=== PATIENT | female | born 1950 | race African-American/Black ===

== ENCOUNTER → 2018-05-24 06:38 | Outpatient (CLI) | payer OTHER, MEDICARE, SELFPAY ==
--- NOTE | 2018-05-24 | DI.MRI.S_ITS ---
PROCEDURE: MR ANKLE RT WO CON INDICATIONS: ACHILLES TENDONITIS OF RIGHT LEG. RIGHT POSTERIOR ANKLE PAIN TECHNIQUE: Noncontrast sagittal T1 spin echo and T2 fast spin echo with fat saturation, axial proton density fast spin echo and T2 fast spin echo with fat saturation, coronal T1 spin echo and T2 fast spin echo with fat saturation through the ankle/hindfoot. COMPARISON: [facility], CR, XR FOOT 3+ VIEWS RIGHT, 01/11/2018, 9:54. [facility], MR, ANKLE WITHOUT CONTRAST, 07/05/2017, 12:35. [facility], CR, XR FOOT 3+ VIEWS RIGHT, 10/03/2014, 9:43. FINDINGS: Image quality: Diagnostic. Bones and joints: There is no acute fracture, dislocation, or suspicious osseous lesions involving the osseous structures of the midfoot or hindfoot. Ankle mortise is well-maintained. There are no osteochondral defects of the tibial plafond or talar dome. Mild heterogeneity of the hyaline articular cartilage on the intra-margin of the tibiotalar joint space is present. No definite full-thickness cartilaginous defects are evident. There is slight increased signal identified on the periphery of the medial malleolus, which may represent a bone contusion. Mild irregularity is identified involving the anterior process of the calcaneus, likely related to previous injury. There are prominent plantar and Achilles spurs involving the calcaneus. There are [id number] degenerative changes of the midfoot and hindfoot joints, most prominent involving the tarsal navicular joint. No significant joint effusions are appreciated. Medial structures: There is moderate irregularity of the deltoid ligament, which appears to represent moderate to high-grade partial-thickness tear. Thickening and increased signal of the superomedial and the spring ligament is present. The plantar components of the spring ligament are intact. The tibialis posterior tendon demonstrates slight increased signal near the level of the navicular. The flexor hallucis longus and flexor digitorum longus tendons are intact. The posterior tibial nerve is within normal limits. Lateral structures: The anterior and posterior distal tibiofibular ligaments are intact. Anterior talofibular ligament is completely torn the posterior talofibular ligament appears to be intact. The calcaneofibular ligament is intact. There is increased signal identified involving the peroneus brevis and peroneus longus tendons. Medial subluxation of the peroneus brevis tendon is identified at the tip of lateral malleolus. There may be a short segment longitudinal split tear involving this portion of the peroneus brevis tendon. No full-thickness tears are identified. Normal fatty signal is seen within the region of the sinus tarsi. Anterior structures: The tibialis anterior, extensor hallucis longus, and extensor digitorum longus tendons appear intact. Posterior and plantar structures: Achilles tendon is prominently thickened and demonstrates increased signal at its insertion with probable areas of low to moderate grade intrasubstance partial thickness tearing. A complete tear is not evident. Medial and lateral bands of the plantar fascia are of normal thickness. IMPRESSION: 1. Moderate grade intrasubstance partial thickness tearing and prominent tendinopathy of the distal Achilles tendon. There is a prominent Achilles spur. 2. Mild to moderate peroneus brevis and peroneus longus tendinopathy. There may be a short segment intrasubstance longitudinal split tear of the peroneus brevis tendon at the lateral malleolus. 3. Full-thickness anterior talofibular ligament tear. 4. Moderate to high-grade partial-thickness tear of the deltoid ligament. 5. Sprain versus scarring of the spring ligament. No full-thickness tear. 6. Mild to moderate degenerative changes of the midfoot and hindfoot joints. 7. Apparent old injury involving the anterior process of the calcaneus. 8. Moderate sized plantar calcaneal spur without imaging findings of plantar fasciitis. Dictated by: Markos Briggs M.D. on 05/24/2018 at 10:36 Approved by: Markos Briggs M.D. on 05/24/2018 at 11:24
== END ==
PROVIDERS: Family Provider Nutritionist; PCP Nutritionist; Visit Provider Podiatrist
DX: M76.61 Achilles tendinitis, right leg (principal); S86.011A Strain of right Achilles tendon, initial encounter; S93.491A Sprain of other ligament of right ankle, initial encounter; S93.421A Sprain of deltoid ligament of right ankle, initial encounter; M19.071 Primary osteoarthritis, right ankle and foot; M77.31 Calcaneal spur, right foot
CPT/HCPCS: 73721

== ENCOUNTER → 2020-03-04 11:47 | Outpatient (CLI) | payer MEDICARE, OTHER, SELFPAY ==
--- NOTE | 2020-03-04 11:51 | DI.RAD.S_ITS ---
PROCEDURE: XR LUMBAR SPINE MIN 4V INDICATIONS: Lumbar radiculopathy TECHNIQUE: 5 views of the lumbar spine were acquired. COMPARISON: None. FINDINGS: Bones: 5 nonrib-bearing vertebrae are present. There is mild L3-L4 anterolisthesis secondary to facet hypertrophy. No vertebral body compression fractures. No suspicious bony lesions. Severe L4-L5 degenerative changes. Moderate L5-S1 degenerative disc changes. Mild L1-L2, L2-L3 and L3-L4 degenerative changes. Moderate L2-L3, L3-L4, L4-L5 and L5-S1 facet arthropathy. Soft tissues: Overlying bowel gas pattern is normal. No suspicious soft tissue calcifications. Oblique images: No pars defects. IMPRESSION: 1. Grade 1 L3-L4 degenerative spondylolisthesis. 2. Multilevel degenerative disease 3. Multilevel facet arthropathy. 4. No fracture. No acute osseous lesion. If symptoms and/or clinical suspicion for pathology persists, evaluation with MRI may be helpful for further assessment. Dictated by: Lilian Guadarrama MD, PhD on 03/04/2020 at 12:39 Approved by: Lilian Guadarrama MD, PhD on 03/04/2020 at 12:40
== END ==
PROVIDERS: Family Provider Nutritionist; PCP Internal Medicine; Referring Provider Physical Medicine & Rehabilitation; Visit Provider Physical Medicine & Rehabilitation
DX: M51.16 Intervertebral disc disorders with radiculopathy, lumbar region (principal); M51.17 Intervertebral disc disorders with radiculopathy, lumbosacral region; M47.26 Other spondylosis with radiculopathy, lumbar region; M47.27 Other spondylosis with radiculopathy, lumbosacral region; M43.16 Spondylolisthesis, lumbar region
CPT/HCPCS: 72110; 99214

== ENCOUNTER → 2020-03-07 07:14 | Outpatient (CLI) | payer MEDICARE, OTHER, SELFPAY ==
--- NOTE | 2020-03-07 07:15 | DI.MRI.S_ITS ---
PROCEDURE: MR LUMBAR SPINE WO CON INDICATIONS: Low back pain right lower extremity radiculopathy TECHNIQUE: Noncontrast sagittal T1 spin echo and T2 fast echo, sagittal STIR, axial T1 and T2 fast spin echo through the lumbar spine. In cases with scoliosis, additional coronal T2 fast spin echo may be performed. COMPARISON: [facility], CR, XR LUMBAR SPINE MIN 4V, 03/04/2020, 11:50. FINDINGS: Image quality: Excellent. Alignment and Curvature: There is grade 1 anterolisthesis of L3 on L4, grade 1 retrolisthesis of L4 on L5 and trace retrolisthesis of L2 on L3. Bone Marrow: Marrow is of normal overall signal. No acute vertebral body compression fractures. Spinal Cord: Conus medullaris terminates at the L1 level. Visualized cord demonstrates normal signal and size. Paraspinous Soft Tissues: No paravertebral masses. Discs: Severe desiccation is present at L4-5, minimal to mild throughout the remainder of the lumbar spine. L1-L2: No disc bulge or spinal stenosis. Mild left foraminal narrowing. Facet and ligamentum flavum hypertrophy are present. L2-L3: Mild disc bulge with mild spinal stenosis. Mild right foraminal narrowing with facet and ligamentum flavum hypertrophy this L3-L4: Mild disc bulge including a left posterior paracentral/foraminal protrusion/extrusion. It is causing severe compromise of the right proximal foramina as well as lateral recess. Moderate spinal stenosis is present. Facet and ligamentum flavum hypertrophy are noted. L4-L5: Mild disc bulge with severe spinal stenosis. Severe left and moderate right foraminal narrowing with facet and ligamentum flavum hypertrophy. L5-S1: Mild disc bulge with mild spinal stenosis. Minimal right foraminal narrowing. IMPRESSION: 1. Disc extrusion causing compromise of the right neural foramina as well as lateral recess at L3-4 as above. 2. Severe left foraminal narrowing at L4-5 secondary to facet arthropathy. 3. Multilevel spinal stenosis most severe at L4-5 secondary to disc bulge with contributing effect of retrolisthesis as well as facet arthropathy. Dictated by: Kailey Dill M.D. on 03/07/2020 at 9:39 Approved by: Kailey Dill M.D. on 03/07/2020 at 10:02
== END ==
PROVIDERS: Family Provider Nutritionist; PCP Internal Medicine; Referring Provider Physical Medicine & Rehabilitation; Visit Provider Physical Medicine & Rehabilitation
DX: M54.5 Low back pain (principal); M51.16 Intervertebral disc disorders with radiculopathy, lumbar region; M43.16 Spondylolisthesis, lumbar region; M47.26 Other spondylosis with radiculopathy, lumbar region; M48.061 Spinal stenosis, lumbar region without neurogenic claudication; M48.07 Spinal stenosis, lumbosacral region
CPT/HCPCS: 72148

== ENCOUNTER → 2020-05-11 08:33 | Outpatient (CLI) | payer MEDICARE, OTHER, SELFPAY ==
[2020-05-13 13:05] LABS: COVID19 Sendout Not Detected (Not Detect)
== END ==
PROVIDERS: Family Provider Nutritionist; PCP Internal Medicine; Visit Provider Nurse Practitioner
DX: Z11.59 Encounter for screening for other viral diseases (principal)
CPT/HCPCS: 87635

== ENCOUNTER 2020-05-14 06:10 | Day surgery (SDC) | payer MEDICARE, OTHER, SELFPAY ==
[2020-05-09 09:58] VITALS: BMI 33.3
[2020-05-14] VITALS (19 sets, daily range): BP systolic 82–170; BP diastolic 46–88; PULSE 71–100; RESP 9–18; TEMP 35.7–36.4; O2SAT 89–100; BMI 33.7
[2020-05-14] MEDS: LACTATED RINGERS 1,000 ML 42 ML IV ×3 (07:00→13:34)
--- NOTE | 2020-05-14 07:21 | P.HP_ITS ---
History of Present Illness History of Present Illness Date Patient Seen: 05/14/20 Time Patient Seen: 07:21 Chief complaint: OPB Narrative: 69-year-old female with low back and right leg pain. This has been slowly progressing over the past 15 years. Back pain is a chronic ache that can flare up. The leg pain runs down the anterior and lateral thigh with a little bit of posterior lateral in the lower legs. A few months ago was so bad she could only walk with crutches but she was given a Medrol Dosepak and is able to move easier. Pain is still a constant 4/10 at rest and much worse with any ambulation. Pain is primarily in the legs. She has been through physical therapy and has had prescription medication. She was not interested in epidural injection. Patient History Medical History Arthritis (Acute) Claustrophobia (Acute) Depression (Acute) Former smoker (Acute) GERD (gastroesophageal reflux disease) (Acute) Headache, migraine (Acute) Herniated nucleus pulposus, L4-5 (Acute) HLD (hyperlipidemia) (Acute) HTN (hypertension) (Acute) Lumbar radiculopathy, right (Acute) Lumbar stenosis with neurogenic claudication (Acute) Multilevel foraminal stenosis (Acute) PAC (premature atrial contraction) (Acute) Sleep apnea (Acute) Spondylolisthesis at L3-L4 level (Acute) Spondylolisthesis of lumbar region (Acute) Syncopal episodes (Acute ~1995) Toe fracture (Acute) Surgical History History of hysterectomy (Acute) History of knee replacement (Acute) History of surgery (Acute) Hx of foot surgery (Acute) Family & Social History Family History Father Hypertension Diabetes mellitus Mother Diabetes mellitus Hypertension Heart disease Glaucoma Social History: household members spouse,children Prior Living Arrangements House Safety & Behavioral: Feels Safe in Current Yes Environment Been Physically Hurt or No Threatened By a Person Suicidal Ideation Description None Suicide Plan Description No Plan Tobacco & Substance use: Smoking Status Former smoker alcohol intake former Substance Use Type does not use Meds Home Medications and Allergies Home Medications Medication Instructions Recorded Confirmed Type atorvastatin [Lipitor] 10 mg PO BEDTIME #0 08/18/17 05/14/20 History losartan 50 mg PO QDAY #0 08/18/17 05/14/20 History omeprazole 20 mg PO QDAY #0 08/18/17 05/14/20 History calcium carbonate 600 mg (1,500 1 cap PO DAILY 03/04/20 05/14/20 History mg)-vitamin D3 500 unit capsule diazepam 10 mg tablet 10 mg PO .COMPLEX PRN #10 tab 03/04/20 05/09/20 Rx hydrocodone 5 mg-acetaminophen 325 1 tab PO Q4-6H PRN 03/04/20 05/10/20 History mg tablet imipramine HCl 10 mg tablet 20 mg PO TID 03/04/20 05/14/20 History meloxicam 15 mg tablet 15 mg PO DAILY PRN tab 03/04/20 05/10/20 History multivitamin with minerals 2 tab PO QID tab 03/04/20 05/14/20 History orlistat 60 mg capsule 120 mg PO .before meals cap 03/04/20 05/14/20 History aspirin 81 mg PO DAILY 05/10/20 05/14/20 History Allergies Allergy/AdvReac Type Severity Reaction Status Date / Time No Known Drug Allergies Allergy Verified 05/14/20 07:20 Review of Systems Constitutional Constitutional: Denies chills and Denies fever(s) Respiratory Respiratory: Denies cough Exam Vital Signs (past 8 hours): - 05/14/20 06:52 Temperature 97.4 F L Pulse Rate 100 H Respiratory Rate 18 Blood Pressure 170/88 H Pulse Oximetry 98 Oxygen Delivery Method Room Air Const Orientation: alert and oriented x3 Resp Auscultation: clear to auscultation bilaterally Cardio Rate: regular rate Rhythm: regular rhythm Back/Spine/Pelvis Other: 5/5 motor both lower extremities except for 4/5 bilateral hip flexors. Intact sensation both lower extremities except for decreased in the bilateral posterolateral anterior lateral thighs. 2+ reflexes negative straight leg raising both lower extremities. Tender palpation and the bilateral lower lumbar paraspinals in the lumbosacral junction and gluteals. Objective Imaging Lumbar MRI from 03/07/2020: My impression: L2-3: Mild central stenosis. L3-4: Left subarticular disc herniation moderate central stenosis severe right foraminal narrowing. L4- 5: Collapse of the disc moderate central and moderate to severe bilateral foraminal narrowing. L5-S1: Transitional anatomy no neural compression. Lumbar x-rays from 03/04/2020: My impression: Grade 2 listhesis of 11 mm at L3-4 collapse of the disc at L4-5. Assessment & Plan Assessment & Plan narrative: She has lumbar stenosis and spondylolisthesis. She has been through conservative management. We are planning a L3 through 5 laminectomy with instrumented fusion (TLIF). Risks and benefits again discussed with the patient and the appropriate consents obtained this morning.
--- NOTE | 2020-05-14 07:42 | PM.OP.1 ---
Operative Date/Time/Diagnoses Date of procedure: 05/14/20 Time of procedure: 12:14 Pre-op diagnosis: Lumbar stenosis and spondylolisthesis Post-op diagnosis: same Procedure & Clinicians Procedure: L3-4, L4-5 laminectomies L3-4, L4-5 TLIF (posterior/posterior interbody fusion) with cages L3, L4, L5 screws Iliac crest bone graft aspirate Use of microscope Placement of epidural catheter Same procedure as scheduled: Yes Indications: [age] year old female with intractable pain from stenosis. They had failed conservative management and requested operative intervention. Risks and benefits of surgery were discussed and appropriate consents were obtained. Surgeon: Vernon Harry Senior Java Data Architect: Melani Sandoval Anesthesia Type: General Operative Notes Findings: None Closure Type: primary Specimen(s): none sent Prosthetic devices, grafts, tissues, transplants, or devices: NuVasive MAS reline screws Globus Rise cages Applied: catheter Estimated Blood Loss (mL): 30 Procedure in detail: The patient was brought to the operating room and intubated on the table. A time-out was performed. They were then rolled over to the well-padded Sridhar table in the prone position. Preoperative antibiotics were given. The back was prepped and draped in the standard sterile fashion. Using fluoroscopy, a 4 cm longitudinal incision was made to the well-marked right of the midline. We used Bovie to come down to and split the lumbodorsal fascia. Using fluoroscopy and monitoring, we then percutaneously placed Jamshidi needles down the pedicles of L3, L4, and L5 on the right side. These were changed out to guidewires and then we tapped and then placed the NuVasive MAS Reline screw shanks. We then opened up the retractors and used Bovie to clear up the posterolateral gutter as well as medially along the lamina to the spinous processes. A bur was used to decorticate the transverse processes. We brought in the microscope. Using a combination of bur and Kerrison rongeurs, a laminectomy was performed from the right side at L4-5. We cleared over past the midline and carefully depressed the dura until we were able to decompress the opposite side. We cleared out the neural foramen with facetectomy. This completed the laminectomy at L4-5. This was separate and distinct from the TLIF approach as we were decompressing the stenotic central canal as well as the nerve roots which added an extra 1/2 hour for the decompression. We then began the TLIF prep. We carefully cleaned up the remainder of the foramen until we could easily retract the exiting root as well as clearing medially below the dura and expose the disc space. The disc was prepped with bipolar and then an annulotomy was performed. We performed a diskectomy using a combination of paddles, yaakov, pituitaries, and curettes. We distracted the disc using a paddle and locked the retractor in an open position. We then filled the disc space with Osteocel bone graft. We then placed the globus Rise cage under fluoroscopy and then filled this in with more bone graft. The distraction on the retractor was released to compress down. This completed the posterior interbody fusion portion of the TLIF at L4-5. We then moved up to the L3-4 level and opened up the retractors and cleared out the gutter and decorticated the transverse process. A complete laminectomy was performed at this level clearing up the central canal as well as the neural foramen. Facetectomy was performed to open up the foramen. This was separate and distinct from the TLIF approach due to the tight stenotic decompression that had to be performed again adding an approximate 1/2 hour more time than a standard TLIF approach. We also had to do the subarticular diskectomy as noted below. We then began the TLIF prep. We carefully cleaned up the remainder of the foramen until we could retract the nerve root. We carefully retracted the dura medially and expose the disc. This was prepped with bipolar and then we performed an annulotomy. We performed a diskectomy with paddle Yaakov pituitaries and curettes. We distracted the disc with the paddle and locked it open with the retractors. We then worked out laterally for her subarticular disc herniation and removed these pieces as well. We then filled the disc space with Osteocell and placed a globus Rise cage under fluoroscopy and added more bone graft. The distraction was released. This completed the posterior interbody fusion of the TLIF at L3-4. The wound was irrigated. An epidural catheter was then prepped with 4 mL of 0.5% Marcaine, 1 mg Stadol, 4 mg Duramorph, and 100 mcg of fentanyl and placed in the spinal canal by carefully depressing the dura and advancing it 6 cm cephalad under the remaining lamina without resistance. We then placed the screw heads, abdirahman, and locked down the set screws. A small stab incision was made over the PSIS. We used a Jamshidi needle to aspirate several mL of bone marrow from the pelvis. This was mixed with the remaining Osteocel and combined with all of the locally harvested bone graft and placed in the posterolateral gutter for the posterior fusion of the TLIF at L3-4 and L4-5. The muscle fascia was closed. The epidural catheter was then injected without resistance and the catheter was pulled. We then went to the opposite side. Again using fluoroscopy, a 3 cm incision was made and Bovie was used to come down to split the fascia. Using neural monitoring and fluoroscopy, Jamshidi needles were advanced down the pedicles of L3, L4, and L5 on the left side. These were switched over guidewires, tapped, and screws placed. We then placed a abdirahman and locked the set screws on this side. The wound was irrigated. The fascia was closed. Vancomycin powder was placed in the wounds. The superficial and skin were closed. A sterile dressing was placed. The patient was then rolled over extubated and brought to recovery room without complications. Complications: none Post-operative Condition: stable Disposition: PACU Plan for aftercare: Inpatient. Up with PT.
[2020-05-14] MEDS: CEFAZOLIN 2 GM/100 ML FROZ.PIGGY IV ×2 (07:47→16:44)
--- NOTE | 2020-05-14 08:00 | DI.RAD.S_ITS ---
PROCEDURE: XR LUMBAR SPINE 2-3V INDICATIONS: L3-4, L4-5 TLIF TECHNIQUE: Fluoroscopic images were obtained during an operative procedure and submitted for interpretation following the completion of the procedure. COMPARISON: [facility], MR, MR LUMBAR SPINE WO CON, 03/07/2020, 8:01. [facility], CR, XR LUMBAR SPINE MIN 4V, 03/04/2020, 11:50. FINDINGS: These fluoroscopic images were performed for intraoperative localization. On these images, bilateral pedicle screws are seen at L3, L4, and L5. Disc spacers are seen at L3-L4 and L4-L5. Please correlate with intraoperative findings. IMPRESSION: Normal intraoperative examination. Dictated by: Piter Torres M.D. on 05/14/2020 at 11:37 Approved by: Piter Torres M.D. on 05/14/2020 at 11:38
--- NOTE | 2020-05-14 08:30 | SUR.OPER ---
Prone on spine table, head in foam head support, padded chest and pelvic supports, gel pad at knees, lower legs supported by pillows; nipples, genitalia and toes free of pressure, arms secured on foam padded arm boards at <90 degrees abduction. Tape over blanket at thigh secured to table.
--- NOTE | 2020-05-14 08:30 | SUR.OPER ---
Cloth tape from bilateral hips to end of spine table to distract skin.
[2020-05-14] MEDS: SODIUM CHLORIDE 0.9% 1,000 ML, GENTAMICIN 80 MG IRR ×2 (08:54→08:56)
[2020-05-14] MEDS: BUPIVACAINE 0.5% (PF) 4 ML, MORPHINE-PF 4 MG, BUTORPHANOL 1 MG, fentaNYL 100 MCG INJ (08:54)
[2020-05-14] MEDS: THROMBIN (RECOMBINANT) 5,000 UNIT VIAL 5000 UNIT TOP (08:55)
[2020-05-14] MEDS: VANCOMYCIN 1,000 MG VIAL 1000 MG TOP (08:56)
--- NOTE | 2020-05-14 12:34 | SUR.PHASEI ---
Shortly after arrival (pt was on O2 at 4LNP) to PACU, patient became apneic, non-responsive to loud voice and physical stimulation. Desat while obtaining ambu bag to 60%. Dr. Negro arrived followed by Dr. Eid. Patient began spontaneous respirations with responding sat into upper 90%s on simple mask at15 liter. 1238 Sat 100% on 10L simple mask; O2 reduced to 8liters. Resp even and regular, arousing spontaneously, barely opening eyes and falls back to sleep.
--- NOTE | 2020-05-14 13:13 | SUR.PHASEI ---
1300 Arousing spontaneously, no further episodes of apnea observed. Weaning O2. Pt opens eyes in response to voice, denies pain/nausea. Otherwise returns to sleep. 1305 turned to right side for position of comfort; stated that the position was better. Pillow behind back and between knees. Returned to sleep.
--- NOTE | 2020-05-14 13:56 | SUR.PHASEI ---
1342 Pt prepared to transfer, did notice desat, responded readily to reminder to deep breath. Pt acknowledged that she does have sleep apnea, does not use a CPAP. Tolerating ice chips well. Moves easily in the bed, continues to deny pain/nausea. urine clearing to pale yellow. Dressing remains CDI, dark red drainage in hemovac tubing. taken to room 218, bed down and locked, call light within reach. Report updated, pt turned to position of comfort with assist. Spouse at bedside. Clothing bag to the room with her. RN placing SCDs on. VSS. No further questions from patient, family, senior communications specialist.
--- NOTE | 2020-05-14 14:05 | SUR.PHASEI ---
1330 late entry, pt tolerating ice chips well. Pleasant and appreciative
[2020-05-14] MEDS: LACTATED RINGERS 1,000 ML 125 ML IV ×2 (14:26→21:41)
--- NOTE | 2020-05-14 16:19 | PT-IP ANOTE ---
Pt arrived AC unit in the early PM. PT order received. Attempt to see pt and Wade at bedside. Pt is very groggy and drowsy and experiencing low BP 90s/50s as nursing staff stated. Wade provides PLOF and social history. Will reattempt eval tomorrow morning
[2020-05-14] MEDS: ACETAMINOPHEN 325 MG TABLET 650 MG PO ×2 (16:44→21:38)
[2020-05-14] MEDS: OXYCODONE IR 5 MG TABLET 10 MG PO (16:44)
[2020-05-14] MEDS: ONDANSETRON 4 MG/2 ML INJ IV (18:18)
[2020-05-14] MEDS: METOCLOPRAMIDE 10 MG/2 ML INJ IV (18:58)
[2020-05-14] MEDS: ATORVASTATIN 10 MG TABLET PO (21:38)
--- NOTE | 2020-05-14 22:13 | PC.NURSE ---
Patient was ambulating up to bathroom w/ DIRECTOR STARS. Patient ate 50% of shake. Midline dressing, lap sites, clean/dry and intact. Bowel tones positive in all 4 quadrants.
--- NOTE | 2020-05-14 22:17 | PC.NURSE ---
Addendum entered by Demi Trotter R.N. 05/14/20 22:38: Gauze dressing w/ tegaderm dry and intact w/ shadow drainage. Original Note: Patient has been nauseated this night. Reglan and Zofran given. Patient had emesis of 100cc before medications were given. Patient had 10mg of Oxycodone before the nausea episode. Patient would only like Tylenol tonight until she is ready to have more food. Patient has been able to tolerate ice chips and ice water.
[2020-05-15] VITALS (9 sets, daily range): BP systolic 109–148; BP diastolic 56–95; PULSE 95–116; RESP 16–19; TEMP 36.3–36.9; O2SAT 92–98
[2020-05-15] MEDS: CEFAZOLIN 2 GM/100 ML FROZ.PIGGY IV (00:52)
[2020-05-15 06:06] LABS: Hematocrit 31.2 % (36-46); Hemoglobin 10.2 g/dL (12.0-16.0)
[2020-05-15] MEDS: PANTOPRAZOLE 20 MG TABLET PO (06:32)
[2020-05-15] MEDS: OXYCODONE IR 5 MG TABLET 10 MG PO ×6 (06:49→23:34)
[2020-05-15] MEDS: LACTATED RINGERS 1,000 ML 125 ML IV (06:49)
--- NOTE | 2020-05-15 07:54 | PM.PNPO.1 ---
Subjective Subjective Date Patient Seen: 05/15/20 Time Patient Seen: 07:54 Interval history: She is doing very well. All of her leg pain has resolved. Back pain is fairly mild. Exam Vital Signs (past 8 hours): - 05/15/20 00:00 05/15/20 04:00 Temperature 97.6 F 98.3 F Pulse Rate 101 H 100 H Respiratory Rate 18 16 Blood Pressure 109/88 116/76 Pulse Oximetry 96 97 Oxygen Delivery Method Room Air Oxygen Flow Rate 0 Const Orientation: alert and oriented x3 Back/Spine/Pelvis Other: Minimal drainage on edge of dressing. 5/5 motor both lower extremities. Drain output 60/130/80 Objective Labs Result Diagrams: 05/15/20 05:55 Labs: Laboratory Results - last 24 hr 05/15/20 05:55 Hgb 10.2 L Hct 31.2 L Assessment & Plan Post-op Postoperative Procedures: Procedures Operation Date: 05/14/20 07:45 Actual Procedures Side Surgeon p L34 and L45 laminectomy & instrumented fusion w/bone graft Vernon Harry MD She is doing great. Mobilize today with physical therapy. Removed catheter. She does a fair amount of space from her deep adipose layer. Keep the drain in for this is there is still a fair amount of output. Anticipate discharge home in the next few days. Quality VTE Deep Vein Thrombosis/Pulmonary Embolism Present on Admission: No
[2020-05-15] MEDS: LOSARTAN 50 MG TABLET PO (08:50)
[2020-05-15] MEDS: DOCUSATE 100 MG CAPSULE PO ×2 (08:51→20:16)
[2020-05-15] MEDS: ASPIRIN EC 81 MG TABLET PO (08:51)
[2020-05-15] MEDS: CALCIUM CARB/VIT D3 500/200 TABLET 1 EACH PO (08:51)
[2020-05-15] MEDS: IMIPRAMINE HCL 20 MG 20 EACH PO (08:52)
[2020-05-15] MEDS: MULTIVIT,CALC,MINS/IRON/FOLIC 1 TABLET 1 TAB PO (08:52)
--- NOTE | 2020-05-15 09:23 | CM.DANOTE ---
DCP/Assessment: Reviewed chart. Patient is a 69yr old female admitted to [facility] for elective spine surgery performed on 05-14-[address] Harry. PCP is Dr. Celaya at [facility]. Primary payor is 1)Medicare 2)[employer]. Met with patient and spouse at bedside explained CM/SW role. Patient alert and oriented, resting in bed at time of visit. Patient reports that she has not yet been up with therapy. PT evaluation currently pending. Patient reports that she plans to d/c home when medically stable. Spouse at bedside and confirms that he will be there to provide assistance as needed. Patient reports that she has all needed DME in the residence. P: Anticipate home when medically stable. CM team to continue to follow. SHERIDAN William Discharge Planning/Care Management Advanced directive, confirm from FAMILY Start: 05/14/20 14:58 Freq: Q24H Status: Active Protocol: Document 05/14/20 14:58 YONI (Rec: 05/14/20 14:59 YONI [id number]) Advance Directive, confirm on record Time 14:59 Person contacted Patient/ Copy received No CM Discharge Assessment Start: 05/15/20 09:18 Freq: Status: Active Protocol: Document 05/15/20 09:19 KJS (Rec: 05/15/20 09:23 KJS [id number]) Discharge Planning Assessment Assigned Seismograph Recorder SHERIDAN William Contact Information Wade Song (spouse) cell# Advance Directives? Yes History Provided By Patient,Significant Other, Medical Record Prior Living Arrangements House Household Members spouse,children Type of transporation used prior to Drives own vehicle admit Independent with ADL's Yes Is patient alert and oriented? Yes DME Already Rented / Owned FWW / Walker Barriers to Discharge No Discharge Plan Home Transportation Arrangement Family to provide transport. Whiteboard Updated in Patient Room with Yes name and ext. # of Seismograph Recorder Review Status In Process Next Review Type Continued Stay Review Pre-Anesthesia Assessment Start: 05/09/20 09:57 Freq: Status: Active Protocol: Document 05/09/20 09:58 CAB (Rec: 05/09/20 10:31 CAB [id number]) Pre-Anesthesia Assessment Patient Information Reviewed Via Phone Assessment Assessment Completed With Patient H&P Completed Within 30 Days Yes Comment Labs/EKG done per pt, not available, COVID screen @ [facility] Primary Care Provider MD Jael Seen Specialist in Last 12 Months Yes Specialist Seen Orthopedist,Print Press Operator Primary Language Bengali Certified Marine Mechanic Required No Height 175.26 cm Weight 102.512 kg Body Mass Index (BMI) 33.3 Hearing Ability Normal Visual Assist Glasses Dentition Type Teeth, Natural Present,Dental Implants Other Aids No Hx Anesthesia Reactions No Hx Family Anesthesia Reaction No Hx Malignant Hyperthermia No Hx Blood Transfusions No Anesthesia Review Requested No Inspector Heating And Refrigeration No alcohol intake former Smoking Status Former smoker how long ago did patient quit smoking Quit 1999 Substance Use Type does not use Pain Present Pain Reported Musculoskeletal Symptoms Abnormal Gait,Back Pain, Difficulty Walking,Muscle Spasms,Radiating Pain into Limb History of Falling (Recent or History of No ) Patient is completely paralyzed or No completely immobile Prosthesis or Orthotic Device Cane,Front Wheel Walker Mental Status Oriented to own ability Is patient on oxygen? No Does patient have OVERTON/SOB No Hx Sleep Apnea Yes: Does not tolerate CPAP, claustrophobic CPAP/BIPAP use prescribed not used Currently Taking a Beta Viet No Can You Climb a Flight of Stairs Without Yes SOB Hx Chest Pain No Hx SOB No Hx Syncope or Dizziness Yes Anti-Coagulant Therapy No Has a Toe Laster Yes: Dr. Meredith last visit Hx Pacemaker/ICD No Pacemaker Rep Required? No Cardiac Clearance Received Not Applicable Comment Cardiac records scanned to record Diet Type At Home Regular dysphagia No Gastrointestinal Symptoms Reflux Urinary Catheter Present No Hx Urinary Self Catheterization No Diabetes No Patient No Lactating No Hx Drug Resistant Organism No Presence of External or Internal Medical Yes: Right knee prosthesis Devices Have you had any close contact with No someone diagnosed with COVID-19? Marital Status Lives With spouse,children Prior Living Arrangements House Number of Floors (Floors) Two Floors Support System Child/Children,Spouse Does the Patient Have Assistance After Yes Surgery Patient Discharge Plan Description Return Home Comment Pt advised same day surgery per surgeon Feels Safe in Current Environment Yes Been Physically Hurt or Threatened By a No Person in Current Environment Do you have thoughts of harming yourself None or others? Are you currently considering suicide? No Do you have a plan to hurt yourself or No Plan others? Do You Have Any Spiritual Beliefs That No May Affect Your HC Choices? Do You Have Any Cultural Practices That No May Affect Your HC Choices? Comment Hinduism Who Can We Speak to About Patient's Care Family, friends Identifying Code for Release of Patient Declines to issue Information Health Care Proxy/Next of Kin Wade () Health Care Proxy Emergency Contact Name Wade () Emergency Contact Advance Directives? No Power of Custom Garment Designer No PAC Instructions Durable medical equipment, Medications to take/avoid, Nasal antibiotic,No ETOH/ petroleum product on skin DOS, NPO,Post-op transportation,Pre -surgical wash,Sturdy shoes/ comfortable clothes,Do not bring valuables and remove jewelry
--- NOTE | 2020-05-15 10:45 | PC.NURSE ---
Addendum entered by Demi Trotter R.N. 05/15/20 14:34: Patient pennington dc'd and IV fluids were stopped. Patient is still having a small ammt. of nausea. Patient is having pain 6/10, 10mg Oxycodone Q3 PRN. 10 mg Reglan given at 1430. Patient has been up w/ PT, and ambulated around the room while I was at her side. Addendum entered by Demi Trotter R.N. 05/15/20 11:26: Called and left message w/ the office about hemovac being out, and asked to keep the pennington in for now. Patient has been up w/ PT, still having some nausea. 4 mg Zofran given. Original Note: PT was working w/ patient and pulled out hemovac. Will call Dr. Harry to let him know. Gauze w/ tegaderm placed on site.
[2020-05-15] MEDS: ACETAMINOPHEN 325 MG TABLET 650 MG PO ×2 (10:48→20:17)
[2020-05-15] MEDS: ONDANSETRON 4 MG/2 ML INJ IV ×2 (10:52→17:06)
--- NOTE | 2020-05-15 11:35 | PT.IIE ---
Current Diagnoses Spondylolisthesis, lumbar region (05/14/20) Spinal stenosis, lumbar region with neurogenic claudication (05/14/20) Strain of muscle, fascia and tendon of lower back, initial encounter (05/14/20) Surgery Performed Operation Date: 05/14/20 07:45 Actual Procedures p L34 and L45 laminectomy & instrumented fusion w/bone graft - Vernon Harry MD Surgical History (Last Reviewed 05/14/20 @ 07:23 by Vernon Harry MD) History of hysterectomy (Acute) History of knee replacement (Acute) History of surgery (Acute) Hx of foot surgery (Acute) Medical History (Last Reviewed 05/14/20 @ 07:23 by Vernon Harry MD) Arthritis (Acute) Claustrophobia (Acute) Depression (Acute) Former smoker (Acute) GERD (gastroesophageal reflux disease) (Acute) Headache, migraine (Acute) Herniated nucleus pulposus, L4-5 (Acute) HLD (hyperlipidemia) (Acute) HTN (hypertension) (Acute) Lumbar radiculopathy, right (Acute) Lumbar stenosis with neurogenic claudication (Acute) Multilevel foraminal stenosis (Acute) PAC (premature atrial contraction) (Acute) Sleep apnea (Acute) Spondylolisthesis at L3-L4 level (Acute) Spondylolisthesis of lumbar region (Acute) Syncopal episodes (Acute ~1995) Toe fracture (Acute) Physical Therapy Inpatient Evaluation/Re-Eval M1 PT/OT-IP Prior Functional Status Start: 05/14/20 15:04 Freq: NEEDED Status: Active Protocol: Document 05/14/20 16:22 (Rec: 05/14/20 16:27 [id number]) Medical Review Prior Functional Status Medical History Reviewed Yes Diet/Fluid Consistency Regular Communication no deficits noted. Mobility and Gait constant pain at R thigh. Has been progressively getting worse recently. Pt's symptoms are very sporadic who has been using FWW / 4WW/ crutches over the past couple years depends on her pain. She was also able to amb without AD occasionally. Pt was able to walk up to 50 yards at most with AD. Activities of Daily Living and IADL's independent with ADLs with AD, but assisted most IADLs including cooking, house cleaning, driving, and grocery shopping etc. Social History Household Members spouse,children Living Arrangements House Number of Floors (Floors) Two Floors Number of Stairs To Enter/Railing? 2 small steps to entrance then 7 steps with R rail to second level, or 7 steps with L rail to bottom floor. pt will stay on 2nd floor which has bedroom and bathroom . Home Environment High Toilet,Walk in Shower Home Equipment Front Wheel Walker,Four Wheel Walker,Bedside Commode,Raised Toilet Seat w/Armrests,Shower Seat with Backrest,Shower Seat without Backrest,Hand Held Shower,Grab Bars In Shower Employment Status Retired Additional Social History Comment pt lives with her in [facility] and a 21 yo grandson also stays there. Grandson will go to school in daytime but able to assist at night. Wade is retired but very active and independent so he will be available to assist as needed. M2 PT-IP Current Condition Start: 05/14/20 15:04 Freq: NEEDED Status: Active Protocol: Document 05/15/20 11:18 (Rec: 05/15/20 11:34 [email or web address] Physical Therapy Current Condition Current Condition Evaluation Date 05/15/20 Treatment Diagnosis L3-5 TLIF, difficulty in walking Onset Date 05/14/20 Precautions Lumbar Precautions Log Roll,No Twisting,Limit Bending,Lifting Restriction of 10 lbs,Gait Belt above Incisional Area Weight Bearing Status Weight Bearing Status Weight Bear as Tolerated M3 PT-IP Subjective Start: 05/14/20 15:04 Freq: NEEDED Status: Active Protocol: Document 05/15/20 11:18 (Rec: 05/15/20 11:34 [email or web address]) Subjective Physical Therapy Visit Type Type Initial Evaluation Visit Start Time 09:51 Visit Stop Time 10:28 Total Visit Minutes 37 Notes hemovac and catheter in place Number of BODY JOINER Visits 0 Physical Therapy Visit Comments Patient Comments Im feeling better torady but i havent gotten out of bed yet Patient Goals to regain strength and mobility. Therapy Pain Assessment Pain When Pain Assessed During Mobility Pain Present Pain Present Pain Reported Location Back Intensity 6 Scale Used Numeric (0 - 10) Description Aching,With Movement Pain Management Techniques Timing of Activity with Medications M4 PT-IP Mobility and Gait Start: 05/14/20 15:04 Freq: NEEDED Status: Active Protocol: Document 05/15/20 11:18 (Rec: 05/15/20 11:34 [id number]) PT-Bed Mobility Assessment Rolling Type of Rolling Log Rolling,Roll to Right Level of Assist Contact Guard Assistance,1 Person Assistance Supine to Sit Supine to Sit Contact Guard Assistance, Bedrails Sit to Supine Sit to Supine Contact Guard Assistance Scooting Scooting to Edge of Bed Contact Guard Assistance PT-Transfer Assessment Sit to and From Stand Sit to and from Stand Minimal Assistance,Use of Upper Extremities Equipment Transfer Assistive Device Gait Belt,Front Wheeled Walker Orthotic/Prosthetic Devices or Brace: No Transfers Transfer Destination Bed,Chair Transfer Technique Stand Step Pivot Transfer Ability Level of Assist Minimal Assistance,Use of Upper Extremities Comments Mobility Comments Pt was in bed upon PT arrival. AxO x4 and agreed to mobilize with PT. BP in supine = 122/ 67 HR 102. Reviewd post op precautions and log roll method with pt and she was receptive. Pt attempted log roll and sit up but she did not complete full log roll and showed early leg swing who flexed her trunk excessively. Had the pt returned to supine and she needed use R bed rail to descend to SL position. Pt then completed proper log roll followed by SL to sit without bed rail. She then stood up with min A and mostly pushed off through UEs from FWW. She felt dizzy and requested to sit down after standing 15 secs. BP at 155/56 HR 106. She took a 4 mins break and stood up again with min A FWW. Pt proceed to amb upto doorway but she stopped there and rested 10 secs d/t dizziness. She requested to return to bedside chair and amb approx 15 feet with CGA. She was able to safely stand step pivot and descend with use of chair armrests. Pt sat in chair comfortably and BP at 148/88 HR 99. She reported feeling better after a few minutes but would like to rest at this point. This PT found out her hemovac was detached. Notifed nursing Demi regarding her symptoms and to reattach hemovac. Call light placed within reach for pt. Gait Assessment Gait Gait Assistance Required: Contact Guard Assist Distance (Feet) 15 Able to Maintain Weight Bearing Status Yes During Gait Assistive Devices Assistive Device Gait Belt,Front Wheeled Walker Orthotic/Prosthetic Devices or Brace: No Gait Deviations General Gait Pattern Decreased Stride Length, Decreased Feet Clearance,Step- to Gait Factors Limiting Gait Function Factors Limiting Gait Function Decreased Activity Tolerance, Decreased Sensation,Decreased Strength,Limited Range of Motion,Pain,Poor Balance,Poor Safety Awareness Comments Gait Comments see mobility section Stair Climbing Assessment Comments Stair Climbing Comments did not assess PT-Balance Assessment Sitting Balance and Reactions Static Sitting Balance Ability Normal Dynamic Sitting Balance Ability Normal Standing Balance and Reactions Static Standing Balance Ability Good Dynamic Standing Balance Ability Good Device Used FWW M5 PT-IP Objective Assessments Start: 05/14/20 15:04 Freq: NEEDED Status: Active Protocol: Document 05/15/20 11:18 (Rec: 05/15/20 11:34 [id number]) Orientation Orientation/Cognition Level of Alertness Alert Orientation Name,Age,Birthday,Month,Date, Year,Day of Week,Place, Situation Language Function Ability No Deficits Noted Safety Awareness Understands Safety Issues Memory Description No Deficits Noted Gross Range of Motion Upper Extremity ROM Assessment Within Functional Limits Lower Extremity ROM Assessment Within Functional Limits Strength Upper Extremity Strength Assessment Within Functional Limits Lower Extremity Strength Assessment Within Functional Limits Coordination Assessment Gross Coordination Gross Coordination WNL Sensation Assessment Sensation Gross Sensation Right UE Impaired Light Touch Intact Sensation Description Numbness Comments Sensation Comments diminished sensation to touch on R lateral thigh, mild numbness reported M6 PT-IP Treatment Start: 05/14/20 15:04 Freq: NEEDED Status: Active Protocol: Document 05/15/20 11:18 (Rec: 05/15/20 11:34 [id number]) Physical Therapy Treatment Exercises Exercises Gluteal Sets,Quad Sets Education Education Provided Precautions,Weight Bearing Status,Post-Op Packet,Safety M7 PT-IP Assessment and Plan Start: 05/14/20 15:04 Freq: NEEDED Status: Active Protocol: Document 05/15/20 11:18 (Rec: 05/15/20 11:34 [id number]) PT Summary Assessment and Plan Potential Rehabilitation Potential Good Status of Condition at Evaluation Evolving Summary Impairments Pain,ROM,Strength,Balance, Sensation,Bed Mobility, Transfers,Gait,Activity Tolerance Assessment Summary This is a low complexity evalution for this 69yo female s/p POD1 L3-5 TLIF. Pt has limited mobility with FWW/ 4WW / crutches/ no AD depends on her pain for PLOF. Wade has been the primary CG and assist in IADLs. Upon assessment, pt amb ~15 ft with FWW, bed and transfer with min A FWW. She c/o dizziness and weakness with slightly elevated BP 150s/80s during mobility possibly d/t prolonged bed bound and pain. Hemovac was accidentally detached during assessment. Notified nursing staff. Expect pt to progress once her pain is more controlled and will be able to d/c home with and son assistance, with HH if needed Goals Bed Mobility Goal Standby Assistance Transfer Goal Standby Assistance,Front Wheeled Walker Gait Goal Standby Assistance,Front Wheel Walker Gait Distance 150 Other Goals 2 small steps to enter entrance then 9 steps to 2nd floor with R rail Days to Meet Goals 3 Frequency of Treatment Frequency Of Treatment Twice a Day Treatment Plan Physical Therapy Treatment Plan Bed Mobility Training,Transfer Training,Gait Training, Therapeutic Exercise,Balance Retraining,Post Op Education, Discharge Planning,Hot or Cold Pack,Neuromuscular Re-ed Other Recommendations and Next Treatment review precautions Focus check vitals mobility as ulises 2 small steps to enter entrance then 9 steps to 2nd floor with R rail Recommendations To Nursing Amount of Assist Needed 1 Person Assist Discharge Recommendations PT Discharge Recommendations Home with Assistance,Home Health Transportation Needs at Discharge Private Vehicle
[2020-05-15] MEDS: METOCLOPRAMIDE 10 MG/2 ML INJ IV (14:22)
--- NOTE | 2020-05-15 15:00 | PT.IPTN ---
Current Diagnoses Spondylolisthesis, lumbar region (05/14/20) Spinal stenosis, lumbar region with neurogenic claudication (05/14/20) Strain of muscle, fascia and tendon of lower back, initial encounter (05/14/20) Surgery Performed Operation Date: 05/14/20 07:45 Actual Procedures p L34 and L45 laminectomy & instrumented fusion w/bone graft - Vernon Harry MD Physical Therapy Treatment Note M2 PT-IP Current Condition Start: 05/14/20 15:04 Freq: NEEDED Status: Active Protocol: Document 05/15/20 11:18 HH (Rec: 05/15/20 11:34 [id number]) Physical Therapy Current Condition Current Condition Evaluation Date 05/15/20 Treatment Diagnosis L3-5 TLIF, difficulty in walking Onset Date 05/14/20 Precautions Lumbar Precautions Log Roll,No Twisting,Limit Bending,Lifting Restriction of 10 lbs,Gait Belt above Incisional Area Weight Bearing Status Weight Bearing Status Weight Bear as Tolerated M3 PT-IP Subjective Start: 05/14/20 15:04 Freq: NEEDED Status: Active Protocol: Document 05/15/20 14:33 SP (Rec: 05/15/20 17:13 SP [id number]) Subjective Physical Therapy Visit Type Type Treatment Note Visit Start Time 14:33 Visit Stop Time 15:00 Total Visit Minutes 27 Notes arrived beginning of tx: completed caregiver training and provided physical assist required during tx. hemovac and catheter in place Vital taken: seated at EOB BP 116/68 HR 96 SaO2 95, standing BP 104/59. Number of ENGAGEMENT ENGINEER Visits 1 Physical Therapy Visit Comments Patient Comments I am feeling alot better, still little dizzy but not nearly as bad as earlier this am. Pt willing to work with therapy. Patient Goals to regain strength and mobility. Therapy Pain Assessment Pain When Pain Assessed During Mobility Pain Present Pain Present Pain Reported Location Back Intensity 4 Scale Used Numeric (0 - 10) Description Aching Pain Management Techniques Re-positioning,Timing of Activity with Medications M4 PT-IP Mobility and Gait Start: 05/14/20 15:04 Freq: NEEDED Status: Active Protocol: Document 05/15/20 14:33 SP (Rec: 05/15/20 17:13 SP [id number]) PT-Bed Mobility Assessment Rolling Type of Rolling Log Rolling,Roll to Left, Bilateral Level of Assist Contact Guard Assistance,1 Person Assistance Supine to Sit Supine to Sit Contact Guard Assistance Sit to Supine Sit to Supine Contact Guard Assistance Scooting Scooting to Edge of Bed Contact Guard Assistance Scooting Up and Down in Bed Standby Assistance PT-Transfer Assessment Sit to and From Stand Sit to and from Stand Contact Guard Assistance, Minimal Assistance,Use of Upper Extremities Equipment Transfer Assistive Device Gait Belt,Front Wheeled Walker Orthotic/Prosthetic Devices or Brace: No Transfers Transfer Destination Bed,Chair,Wheelchair Transfer Technique Stand Step Pivot Transfer Ability Level of Assist Contact Guard Assistance,Use of Upper Extremities Comments Mobility Comments Pt was seated at EOB when arrived finishing up her lunch , stable sitting balance. Vitals taken, see Note section . Sit<> stand CGA using FWW with occasional cuing for proper hand placement push up from bed/ chair arm and reaching back prior to sitting for slow descent. Pt ambulated around room L side bed to chair CGA using FWW with cuing for upright posture step over step, heavy BUE WB on FWW. SPT usign FWW, slow descent into chair CGA. Sit> stand from chair CGA- Min A from chair, further distance walking into hallway using FWW CGA by wt w/c follow approx 60 ft before required seated rest in w/c. Pushed patient to stairs. Ascend/descend 9 stairs facing R step to patterning CGA by to assimulate home enterance to 2nd level where all needs are. Pt was able to ambulate full distance approx 200ft stairs to room w/c follow but not needed. Pt reported little dizzy but not enough to stop. Pt requested to sit up in chair when returned to room. Pt had call light and all needs in reach with in room before left. Gait Assessment Gait Gait Assistance Required: Contact Guard Assist Distance (Feet) 200 Able to Maintain Weight Bearing Status Yes During Gait Assistive Devices Assistive Device Gait Belt,Front Wheeled Walker Orthotic/Prosthetic Devices or Brace: No Gait Deviations General Gait Pattern Decreased Stride Length, Decreased Feet Clearance,Step- to Gait Factors Limiting Gait Function Factors Limiting Gait Function Decreased Activity Tolerance, Decreased Sensation,Decreased Strength,Limited Range of Motion,Pain,Poor Balance,Poor Safety Awareness Comments Gait Comments See mobility comments for details. Stair Climbing Assessment Evaluation Level of Assist On Stairs Contact Guard Assistance,1 Person Assistance Devices Stair Climbing Assistive Devices Right Railing Technique/Endurance Stair Climbing Direction Ascend and Descend Stair Climbing Technique Step to Step Number of Steps Climbed 3 Stair Climbing Set # Repetitions (reps) 3 Comments Stair Climbing Comments see mobility comments for details. PT-Balance Assessment Sitting Balance and Reactions Static Sitting Balance Ability Normal Dynamic Sitting Balance Ability Normal Standing Balance and Reactions Static Standing Balance Ability Good Dynamic Standing Balance Ability Good Device Used FWW M5 PT-IP Objective Assessments Start: 05/14/20 15:04 Freq: NEEDED Status: Active Protocol: Document 05/15/20 11:18 (Rec: 05/15/20 11:34 [id number]) Orientation Orientation/Cognition Level of Alertness Alert Orientation Name,Age,Birthday,Month,Date, Year,Day of Week,Place, Situation Language Function Ability No Deficits Noted Safety Awareness Understands Safety Issues Memory Description No Deficits Noted Gross Range of Motion Upper Extremity ROM Assessment Within Functional Limits Lower Extremity ROM Assessment Within Functional Limits Strength Upper Extremity Strength Assessment Within Functional Limits Lower Extremity Strength Assessment Within Functional Limits Coordination Assessment Gross Coordination Gross Coordination WNL Sensation Assessment Sensation Gross Sensation Right UE Impaired Light Touch Intact Sensation Description Numbness Comments Sensation Comments diminished sensation to touch on R lateral thigh, mild numbness reported M6 PT-IP Treatment Start: 05/14/20 15:04 Freq: NEEDED Status: Active Protocol: Document 05/15/20 14:33 SP (Rec: 05/15/20 17:13 SP [id number]) Physical Therapy Treatment Education Education Provided Precautions,Weight Bearing Status,Post-Op Packet,Safety M7 PT-IP Assessment and Plan Start: 05/14/20 15:04 Freq: NEEDED Status: Active Protocol: Document 05/15/20 14:33 SP (Rec: 05/15/20 17:13 SP [id number]) PT Summary Assessment and Plan Potential Rehabilitation Potential Good Status of Condition at Evaluation Evolving Summary Impairments Pain,ROM,Strength,Balance, Sensation,Bed Mobility, Transfers,Gait,Activity Tolerance Progress Towards Goals Progressing Toward Goals,Slow Progress due to Pain,Slow Progress due to Activity Tolerance Assessment Summary Wade completed caregiver training. Pt required SBA- CGA during mobility, used fWW, amb ~200 ft with FWW. She c/o light dizziness but BP WNL and pt wanting to progress in activity. Pt is able to return home with and son to assistance when medically ready to DC. Goals Bed Mobility Goal Standby Assistance Transfer Goal Standby Assistance,Front Wheeled Walker Gait Goal Standby Assistance,Front Wheel Walker Gait Distance 150 Other Goals 2 small steps to enter entrance then 9 steps to 2nd floor with R rail Days to Meet Goals 3 Frequency of Treatment Frequency Of Treatment Twice a Day Treatment Plan Physical Therapy Treatment Plan Bed Mobility Training,Transfer Training,Gait Training, Therapeutic Exercise,Balance Retraining,Post Op Education, Discharge Planning,Hot or Cold Pack,Neuromuscular Re-ed Other Recommendations and Next Treatment review precautions Focus check vitals mobility as ulises 2 small steps to enter entrance no HR assess w/ 2 SPC has at home to use, completed 9 stair R HR today. Recommendations To Nursing Amount of Assist Needed 1 Person Assist Discharge Recommendations PT Discharge Recommendations Home with Assistance,Home Health Transportation Needs at Discharge Private Vehicle
--- NOTE | 2020-05-15 15:49 | OT.IP.EVAL ---
Current Diagnoses Spondylolisthesis, lumbar region (05/14/20) Spinal stenosis, lumbar region with neurogenic claudication (05/14/20) Strain of muscle, fascia and tendon of lower back, initial encounter (05/14/20) Surgery Performed Operation Date: 05/14/20 07:45 Actual Procedures p L34 and L45 laminectomy & instrumented fusion w/bone graft - Vernon Harry MD Past Medical History (Last Reviewed 05/14/20 @ 07:23 by Vernon Harry MD) Arthritis (Acute) Claustrophobia (Acute) Depression (Acute) Former smoker (Acute) GERD (gastroesophageal reflux disease) (Acute) Headache, migraine (Acute) Herniated nucleus pulposus, L4-5 (Acute) HLD (hyperlipidemia) (Acute) HTN (hypertension) (Acute) Lumbar radiculopathy, right (Acute) Lumbar stenosis with neurogenic claudication (Acute) Multilevel foraminal stenosis (Acute) PAC (premature atrial contraction) (Acute) Sleep apnea (Acute) Spondylolisthesis at L3-L4 level (Acute) Spondylolisthesis of lumbar region (Acute) Syncopal episodes (Acute ~1995) Toe fracture (Acute) Surgical History (Last Reviewed 05/14/20 @ 07:23 by Vernon Harry MD) History of hysterectomy (Acute) History of knee replacement (Acute) History of surgery (Acute) Hx of foot surgery (Acute) Occupational Therapy Inpatient Evaluation/Re-Eval M1 PT/OT-IP Prior Functional Status Start: 05/15/20 17:45 Freq: NEEDED Status: Active Protocol: Document 05/15/20 15:23 [facility] (Rec: 05/15/20 18:34 [facility] [id number]) Medical Review Prior Functional Status Medical History Reviewed Yes Diet/Fluid Consistency Regular Communication no deficits noted. Mobility and Gait constant pain at R thigh. Has been progressively getting worse recently. Pt's symptoms are very sporadic who has been using FWW / 4WW/ crutches over the past couple years depends on her pain. She was also able to amb without AD occasionally. Pt was able to walk up to 50 yards at most with AD. Activities of Daily Living and IADL's independent with ADLs with AD, but assisted most IADLs including cooking, house cleaning, driving, and grocery shopping etc. Social History Household Members spouse,children Living Arrangements House Number of Floors (Floors) Two Floors Number of Stairs To Enter/Railing? 2 small steps to entrance then 7 steps with R rail to second level, or 7 steps with L rail to bottom floor. pt will stay on 2nd floor which has bedroom and bathroom . Home Environment High Toilet,Walk in Shower Home Equipment Front Wheel Walker,Four Wheel Walker,Bedside Commode,Raised Toilet Seat w/Armrests,Shower Seat with Backrest,Shower Seat without Backrest,Hand Held Shower,Grab Bars In Shower Employment Status Retired Additional Social History Comment pt lives with her in [place] and a 21 yo grandson also stays there. Grandson will go to school in daytime but able to assist at night. Wade is retired but very active and independent so he will be available to assist as needed. M2 OT-IP Current Condition Start: 05/15/20 17:45 Freq: Status: Active Protocol: Document 05/15/20 15:23 [facility] (Rec: 05/15/20 18:34 [facility] [id number]) Occupational Therapy Current Condition Current Condition Evaluation Date 05/15/20 Treatment Diagnosis Lumbar stenosis s/p L3-4, L4-5 laminectomy Diagnosis Onset Date 05/14/20 Post Operative Precautions Lumbar Precautions Log Roll,No Twisting,Limit Bending,Lifting Restriction of 10 lbs,Gait Belt above Incisional Area M3 OT- IP Subjective and Pain Start: 05/15/20 17:45 Freq: Status: Active Protocol: Document 05/15/20 15:23 [facility] (Rec: 05/15/20 18:34 [facility] [id number]) OT- Subjective Occupational Therapy Visit Type Type Initial Evaluation Visit Start Time 15:23 Visit Stop Time 15:49 Total Visit Minutes 26 Occupational Therapy Visit Comments Patient Comments Pt's present and initiated caregiver training. Patient/Caregiver Goals To go home. OT Pain Assessment Pain When Pain Assessed At Rest Pain Present Pain Present Denied Pain M4 OT- IP ADL's Start: 05/15/20 17:45 Freq: Status: Active Protocol: Document 05/15/20 15:23 [facility] (Rec: 05/15/20 18:34 [facility] [id number]) OT [id number] Comments OT Self-Feeding Comments Not at meal time. OT ADL-Grooming Comments OT Grooming Comments Pt educated to spit into a cup while brushing her teeth in order to best follow her back precautions. OT ADL-Dressing General Eval Lower Body Dressing Ability Maximum Assistance Areas Needing Assistance Socks Comments OT Dressing Comments Educated pt on LB dressing equipment and able to use company doctor and socks aid to luis miguel/ doff. OT ADL-Toileting General Evaluation Toileting Ability Standby Assistance,Moderate Assistance Areas Needing Assistance Perform Perineal Hygiene Comments OT Toileting Comments Pt not able to wipe from the behind but able to wipe from the front after urination. Pt educated on toilet paper aid and looking to order one for home use. OT ADL-Bathing Comments OT Bathing Comments Pt states to do shower tomorrow. M5 OT- IP IADL's Start: 05/15/20 17:45 Freq: Status: Active Protocol: Document 05/15/20 15:23 [facility] (Rec: 05/15/20 18:34 [facility] [id number]) OT-Instrumental Activities of Daily Living Home Safety Awareness Awareness of Need for Assistance at Home Good Awareness Ability to Problem Solve Emergency Able to Problem Solve Situations Home Safety Comments Pt's states will assist pt for all needs at home. Meal Preparation Meal Preparation Caregiver Provides Assist Entrepreneurial Finance Professor Entrepreneurial Finance Professor Caregiver Provides Assist M6 OT- IP Functional Cognition Start: 05/15/20 17:45 Freq: Status: Active Protocol: Document 05/15/20 15:23 [facility] (Rec: 05/15/20 18:34 [facility] [id number]) Cognitive Factors Limiting Selfcare Function Cognitive Ability Level of Alertness Alert Patient Orientation Name,Age,Birthday,Month,Date, Year,Day of Week,Place, Situation Attention Span Ability Capable of Focused Attention, Capable of Sustained Attention Ability to Follow Commands Able to Follow One Step Commands Safety Awareness Decreased Ability to Apply Precautions,Underestimates Need for Assistance Cognitive Comments Cognitive Assessment Comments Pt a bit impulsive and tends to move fast and needing vc for to slow down. M7 OT- IP Mobility and Balance Start: 05/15/20 17:45 Freq: Status: Active Protocol: Document 05/15/20 15:23 [facility] (Rec: 05/15/20 18:34 [facility] [id number]) OT-Transfer Assessment Sit to and From Stand Sit to and from Stand Standby Assistance Transfers Transfer Ability Standby Assistance,Contact Guard Assistance Technique Transfer Destination Chair,Toilet Devices Transfer Assistive Devices Gait Belt,Front Wheeled Walker Comments Mobility Comments Pt CGA to SBA to stand with FWW. pt needing vc to to slow down. Pt tends to turn too quickly. OT- Balance Assessment Sitting Balance and Reactions Static Sitting Balance Ability Normal Dynamic Sitting Balance Ability Normal Standing Balance and Reactions Static Standing Balance Ability Good M8 OT- IP Objective Assessments Start: 05/15/20 17:45 Freq: Status: Active Protocol: Document 05/15/20 15:23 [facility] (Rec: 05/15/20 18:34 [facility] [id number]) OT Gross Range of Motion Upper Extremity Range of Motion Assessment Within Functional Limits OT Strength Upper Extremity Strength Assessment Within Functional Limits OT-Muscle Tone Assessment Muscle Tone WNL Yes M9 OT- IP Assessment and Plan Start: 05/15/20 17:45 Freq: Status: Active Protocol: Document 05/15/20 15:23 [facility] (Rec: 05/15/20 18:34 [facility] [id number]) OT Summary Assessment and Plan Potential Rehabilitation Potential Good Analytic Complexity at Evaluation Low Summary OT Impairments Functional Mobility,Grooming, Dressing,Toileting,Bathing, Toilet Transfers,Shower Transfers,Activity Tolerance Progress Towards Goals Progressing Toward Goals Assessment Summary Pt low complexity and doing well and has a supportive that will assist pt for all needs at home. Pt looking to order a toilet paper aid and already issued company doctor and sock aid. Pt main barriers are steps and a bit impulsive and needing cues to slow down and incorporate her back precautions. Goals Grooming Goal Independent Dressing Goal Independent Toileting Goal Independent Bathing Goal Independent Toilet Transfer Goal Independent Shower Transfer Goal Independent Patient/Caregiver Education Goal Caregiver Independent Assisting Patient Days to Meet Goals 2 Frequency of Treatment Frequency Of Treatment Once a Day Treatment Plan OT Treatment Plan ADL Training,Functional Mobility,Patient/Family Education,Discharge Planning Other Treatment Recommendations and Next caregiver training and shower Treatment Focus Discharge Recommendations OT Discharge Recommendations Home with Assistance Home Equipment Needs toilet paper aid Transportation Needs at Discharge Private Vehicle
[2020-05-15] MEDS: GABAPENTIN 300 MG CAPSULE PO (20:16)
[2020-05-15] MEDS: ATORVASTATIN 10 MG TABLET PO (20:16)
[2020-05-15] MEDS: SENNOSIDES 8.6 MG TABLET 17.2 MG PO (20:21)
[2020-05-15] MEDS: hydrOXYzine pamoate 25 MG CAPSULE PO (20:21)
[2020-05-15] MEDS: HYDROMORPHONE 0.5 MG INJ IV (21:20)
[2020-05-16 05:00] VITALS: BP 125/58; PULSE 114; RESP 16; TEMP 36.2; O2SAT 92
[2020-05-16] MEDS: OXYCODONE IR 5 MG TABLET 10 MG PO ×2 (05:42→08:54)
[2020-05-16] MEDS: PANTOPRAZOLE 20 MG TABLET PO (06:02)
--- NOTE | 2020-05-16 08:34 | PM.PNPO.1 ---
Subjective Subjective Date Patient Seen: 05/16/20 Time Patient Seen: 08:35 Interval history: She is doing well. Pain is about a 5-6 across the back. Legs feel fine. She has been up and walking around with physical therapy. No more nausea. The drain was accidentally pulled out yesterday. Exam Vital Signs (past 8 hours): - 05/16/20 05:00 Temperature 97.2 F L Pulse Rate 114 H Respiratory Rate 16 Blood Pressure 125/58 L Pulse Oximetry 92 Oxygen Delivery Method Room Air Oxygen Flow Rate 0 Const Orientation: alert and oriented x3 Back/Spine/Pelvis Other: Minimal drainage. 5/5 motor both lower extremities. Objective Labs Result Diagrams: 05/15/20 05:55 Assessment & Plan Post-op Postoperative Procedures: Procedures Operation Date: 05/14/20 07:45 Actual Procedures Side Surgeon p L34 and L45 laminectomy & instrumented fusion w/bone graft Vernon Harry MD She is doing very well. Mobilize again with physical therapy this morning than discharge home. Quality VTE Deep Vein Thrombosis/Pulmonary Embolism Present on Admission: No
[2020-05-16 08:53] VITALS: BP 142/68; PULSE 117
[2020-05-16] MEDS: MULTIVIT,CALC,MINS/IRON/FOLIC 1 TABLET 1 TAB PO (08:53)
[2020-05-16] MEDS: LOSARTAN 50 MG TABLET PO (08:53)
[2020-05-16] MEDS: DOCUSATE 100 MG CAPSULE PO (08:53)
[2020-05-16] MEDS: ASPIRIN EC 81 MG TABLET PO (08:54)
[2020-05-16] MEDS: ACETAMINOPHEN 325 MG TABLET 650 MG PO (08:55)
[2020-05-16] MEDS: CALCIUM CARB/VIT D3 500/200 TABLET 1 EACH PO (08:55)
[2020-05-16 09:00] VITALS: BP 142/68; PULSE 117; RESP 15; TEMP 36.7; O2SAT 93
--- NOTE | 2020-05-16 09:34 | OT.IP.TRT ---
Current Diagnoses Spondylolisthesis, lumbar region (05/14/20) Spinal stenosis, lumbar region with neurogenic claudication (05/14/20) Strain of muscle, fascia and tendon of lower back, initial encounter (05/14/20) Surgery Performed Operation Date: 05/14/20 07:45 Actual Procedures p L34 and L45 laminectomy & instrumented fusion w/bone graft - Vernon Harry MD Occupational Therapy Treatment Note M2 OT-IP Current Condition Start: 05/15/20 17:45 Freq: Status: Active Protocol: Document 05/15/20 15:23 [facility] (Rec: 05/15/20 18:34 [facility] [id number]) Occupational Therapy Current Condition Current Condition Evaluation Date 05/15/20 Treatment Diagnosis Lumbar stenosis s/p L3-4, L4-5 laminectomy Diagnosis Onset Date 05/14/20 Post Operative Precautions Lumbar Precautions Log Roll,No Twisting,Limit Bending,Lifting Restriction of 10 lbs,Gait Belt above Incisional Area M3 OT- IP Subjective and Pain Start: 05/15/20 17:45 Freq: Status: Active Protocol: Document 05/16/20 10:08 [facility] (Rec: 05/16/20 10:14 [facility] [id number]) OT- Subjective Occupational Therapy Visit Type Type Treatment Note Visit Start Time 08:57 Visit Stop Time 09:35 Total Visit Minutes 37 Occupational Therapy Visit Comments Patient Comments Pt and present and pt looking to take a shower. Patient/Caregiver Goals To go home. OT Pain Assessment Pain When Pain Assessed During Mobility Pain Present Pain Present Pain Reported Location Back Intensity 6 Scale Used Numeric (0 - 10) M4 OT- IP ADL's Start: 05/15/20 17:45 Freq: Status: Active Protocol: Document 05/16/20 10:08 [facility] (Rec: 05/16/20 10:14 [facility] [id number]) OT [id number] Comments OT Self-Feeding Comments Not at meal time. OT ADL-Dressing General Eval Upper Body Dressing Ability Minimal Assistance Lower Body Dressing Ability Standby Assistance Comments OT Dressing Comments Anya to help untwist her camisole and SBA with use of LB dressing equipment and SBA while standing to luis miguel clothing over her hips. OT ADL-Bathing General Evaluation Bathing Ability Minimal Assistance Areas Needing Assistance Wash/Dry Back Comments OT Bathing Comments Pt able to sit for showering needs. Pt's able to assist her as needed. M5 OT- IP IADL's Start: 05/15/20 17:45 Freq: Status: Active Protocol: Document 05/15/20 15:23 [facility] (Rec: 05/15/20 18:34 [facility] [id number]) OT-Instrumental Activities of Daily Living Home Safety Awareness Awareness of Need for Assistance at Home Good Awareness Ability to Problem Solve Emergency Able to Problem Solve Situations Home Safety Comments Pt's states will assist pt for all needs at home. Meal Preparation Meal Preparation Caregiver Provides Assist Carton Stenciler Carton Stenciler Caregiver Provides Assist M6 OT- IP Functional Cognition Start: 05/15/20 17:45 Freq: Status: Active Protocol: Document 05/16/20 10:08 [facility] (Rec: 05/16/20 10:14 [facility] [email or web address]) Cognitive Factors Limiting Selfcare Function Cognitive Comments Cognitive Assessment Comments Pt not as impulsive today and able to follow back precautions better. M7 OT- IP Mobility and Balance Start: 05/15/20 17:45 Freq: Status: Active Protocol: Document 05/16/20 10:08 [facility] (Rec: 05/16/20 10:14 [facility] [email or web address]) OT-Transfer Assessment Sit to and From Stand Sit to and from Stand Standby Assistance Transfers Transfer Ability Standby Assistance,Contact Guard Assistance Technique Transfer Destination Bed,Shower Stall Devices Transfer Assistive Devices Gait Belt,Front Wheeled Walker Comments Mobility Comments Pt's able to luis miguel/doff gait belt, transfer with FWW and walk into and out of the bathroom with good safety. OT- Balance Assessment Sitting Balance and Reactions Static Sitting Balance Ability Normal Dynamic Sitting Balance Ability Normal Standing Balance and Reactions Static Standing Balance Ability Good M8 OT- IP Objective Assessments Start: 05/15/20 17:45 Freq: Status: Active Protocol: Document 05/15/20 15:23 [facility] (Rec: 05/15/20 18:34 [facility] [id number]) OT Gross Range of Motion Upper Extremity Range of Motion Assessment Within Functional Limits OT Strength Upper Extremity Strength Assessment Within Functional Limits OT-Muscle Tone Assessment Muscle Tone WNL Yes M9 OT- IP Assessment and Plan Start: 05/15/20 17:45 Freq: Status: Active Protocol: Document 05/16/20 10:08 [facility] (Rec: 05/16/20 10:14 [facility] [id number]) OT Summary Assessment and Plan Potential Rehabilitation Potential Good Analytic Complexity at Evaluation Low Summary Progress Towards Goals Progressing Toward Goals Assessment Summary Pt doing well and able to demonstrate good safety and awareness to be able to assist to for all needs. Pt looking to go home today with 's assist. Goals Days to Meet Goals 1 Discharge Recommendations OT Discharge Recommendations Home with Assistance Home Equipment Needs toilet paper aid Transportation Needs at Discharge Private Vehicle
--- NOTE | 2020-05-16 09:48 | PT-IP ANOTE ---
Pt about to d/c upon arrival from therapy at 9:48 AM. Caregiver training completed yesterday. Pt able to recall 3/3 precautions, both pt and spouse state they feel ready to return home and have no further needs or questions from therapy.
--- NOTE | 2020-05-16 10:38 | PC.NURSE ---
Patient and educated about discharge instructions. Signs and symptoms of infection, use of medications, new and discontinued medications, limits on bending and lifting, using the log roll, s/s of stroke, ways to decrease falls. Medications were sent to pharmacy via electronic route. Dressing was changed on her back to coversite, extra bandages were provided. Patient was told to follow up w/ Dr. Harry in 1.5 weeks. Patient left the room w/ all belongings.
--- NOTE | 2020-05-16 11:40 | PC.NURSE ---
CALLED PATIENT ON HER CELL PHONE, SPOKE TO HER AFTER PATIENT HAD BEEN DISCHARGED. NOTIFIED HER THAT SHE HAD LEFT HER DUAL FLOOR SPACE [employer]OC[employer] BEHIND. SHE REPLIED I'LL JUST LEAVE IT THERE, SO SOMEONE ELSE CAN USE IT.. SENT WITH HOUSEKEEPING TO LOST IN FOUND, IN CASE PATIENT CHANGER HER MIND AND CALLS TO LOOK FOR IT.
--- NOTE | 2020-05-16 15:01 | CM.DPNOTE ---
DC Note Patient has been cleared for return home w/spouse to assist and patient eager to do so. 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 JW
== END 2020-05-16 10:42 | disposition home or self-care (01) ==
LOC: OR 06:13 → AC 06:15
PROVIDERS: Family Provider Nutritionist; PCP Internal Medicine; Referring Provider Internal Medicine; Visit Provider Orthopaedic Surgery
PROC: (CPT 22633; principal; 2020-05-14 07:45)
DX: M48.062 Spinal stenosis, lumbar region with neurogenic claudication (principal); M43.16 Spondylolisthesis, lumbar region; S39.012A Strain of muscle, fascia and tendon of lower back, initial encounter; I10 Essential (primary) hypertension
CPT/HCPCS: 22633; 22634; 22853 ×2; 22842; 63048; 20939; 63047; 36415; 72100; 76000; 85014; 85018; 94762; 97116; 97161; 97165; 97530; 97535; C1776; J0330; J0595; J0690; J1100; J1170; J2250; J2274; J2405; J2704; J2765; J3010

== ENCOUNTER → 2021-10-21 07:44 | Outpatient (CLI) | payer MEDICARE, OTHER, SELFPAY ==
[2020-05-14 13:55] VITALS: BMI 33.7
--- NOTE | 2021-10-21 | DI.ECHO.S_ITS ---
[facility]---------+ [facility] +---------+ : : [address] : [place] : : : : [id number] : : : : Phone: [phone]+ Echocardiogram Report + + :Name: LILLIAM PATTON Study Date: 10/21/2021 Height: 69 in : :[facility] ReadingLocation: Weight: 203 lb : : Gender: Female BSA: 2.1 m2 : :: 1950 Age: 71 yrs BP: 134/91 mmHg: :Reason For Study: ATRIAL PREMATURE DEPOLARIZATION : :Ordering Physician: RIAZ, : :ABRAHAN Performed By: Naomi Davis : :Referring: ABRAHAN MEREDITH : + + Interpretation Summary 1) Normal left ventriuclar size with mildly reduced systolic function (EF 45- 50%). 2) Normal right ventricular size and function. 3) No significant valvular abnormalities. 4) No prior Echo available for comparison. Procedure: A two-dimensional transthoracic echocardiogram with color flow and Doppler was performed. The study quality was technically adequate. There is no prior echocardiogram noted for this patient. The patient had frequent PACs during the exam. The patient was in sinus rhythm with heart rates between 80-90 bpm during the exam. Left Ventricle: The left ventricle is normal in size and wall thickness. The ejection fraction is estimated to be 45-50%. There is mild global hypokinesis of the left ventricle. Right Ventricle: The right ventricle is normal in size and function. Atria: The left atrial size is normal. Right atrial size is normal. There is no Doppler evidence for an interatrial shunt. Mitral Valve: The mitral valve leaflets appear mildly thickened, but open well. There is mild mitral annular calcification. There is mild mitral regurgitation. Aortic Valve: The aortic valve is trileaflet. The aortic valve opens well. There is no aortic valve stenosis. No aortic regurgitation is present. Tricuspid Valve: The tricuspid valve is normal in structure and function. There is trace tricuspid regurgitation. Pulmonic Valve: The pulmonic valve leaflets are thin and pliable; valve motion is normal. There is trace pulmonic regurgitation. Great Vessels: The aortic root is normal size. The dimensions of the ascending aorta are normal. The IVC is of normal diameter and collapses greater than 50% with a sniff. This suggests a low right atrial pressure of 3 mm Hg. Pericardium/ Pleura There is no pericardial effusion. There is no pleural effusion. MMode/2D Measurements & Calculations LVIDd: 4.7 cm LVOT diam: 2.1 cm LVIDs: 3.4 cm Ao root diam: 3.1 cm FS: 27.6 % asc Aorta Diam: 3.8 cm IVSd: 0.87 cm Ao Arch Diam (Prox Trans): 3.1 cm LVPWd: 0.88 cm LV zuluaga. diameter/BSA (cm/m^2): 2.3 LV sys. diameter/BSA (cm/m^2): 1.6 LA A2 area: 19.8 cm2 RA long axis: 4.9 cm LA A4 area: 19.7 cm2 RA area: 15.0 cm2 LA length (vol): 4.9 cm RA vol: 38.6 ml LA vol: 67.1 ml RA : 18.6 ml/m2 LA vol index: 32.3 ml/m2 IVC diam: 1.6 cm RVD1 (basal): 3.2 cm TAPSE: 2.2 cm Doppler Measurements & Calculations Ao V2 max: 138.4 cm/sec LVOT Max Dash: 82.0 cm/sec Ao V2 mean: 98.5 cm/sec LV V1 max P.7 mmHg Ao max P.7 mmHg LV V1 VTI: 17.8 cm Ao mean P.3 mmHg CANDY(I,D): 2.1 cm2 Ao V2 VTI: 30.0 cm CANDY(V,D): 2.1 cm2 sev ratio: 0.59 CANDY indexed to BSA (cm^2/m^2): 1.00 MV E max dash: 91.9 cm/sec TR max dash: 231.1 cm/sec MV A max dash: 105.5 cm/sec TR max P.4 mmHg MV E/A: 0.87 PA V2 max: 105.5 cm/sec Med Peak E' Dash: 10.3 cm/sec PA V2 mean: 70.5 cm/sec E/E' med: 9.0 PA mean P.3 mmHg Lat Peak E' Dash: 4.8 cm/sec PA pr(Accel): 39.6 mmHg E/E' lat: 19.2 E/e' average: 14.1 MV dec time: 0.21 sec SV(LVOT): 62.1 ml Reading Physician:01:19 PM
[2021-10-21 08:34] LABS: Add Manual Diff / Slide Review NO; Basophils Absolute Auto 0 /uL (0-100); Basophils Percent Auto 0.4 % (0-2); Eosinophils Absolute Auto 100 /uL (0-450); Eosinophils Percent Auto 1.9 % (2-4); Hematocrit 41.8 % (36-46); Hemoglobin 13.7 g/dL (12.0-16.0); Lymphocytes Absolute Auto 1800 /uL (1100-4500); Lymphocytes Percent Auto 39.8 % (25-40); Mean Corpuscular HGB Conc 32.8 % (30-36); Mean Corpuscular Hemoglobin 27.8 PG (26-34); Mean Corpuscular Volume 84.6 fL (80-100); Monocytes Absolute Auto 300 /uL (0-900); Monocytes Percent Auto 6.9 % (3-14); Neutrophils Absolute Auto 2300 /uL (1500-7000); Platelet Count 283 X10^3/uL (150-400); Red Blood Cell Count 4.94 X10^6/uL (4.0-5.2); Red Cell Distribution Width 15.1 % (11.6-14.8); White Blood Cell Count 4.6 X10^3/uL (4.5-11.0)
[2021-10-21 08:42] LABS: BUN Creatinine Ratio 20.5 (6-22); Blood Urea Nitrogen 16 mg/dL (7-17); Calcium 9.5 mg/dL (8.4-10.2); Carbon Dioxide 35 mmol/L (22-32); Chloride 102 mmol/L (98-107); Cholesterol 177 mg/dL (140-199); Estimated Glomerular Filt Rate > 60.0 mL/min (>60); Glucose 101 mg/dL (80-110); HDL Cholesterol 85 mg/dL (40-60); HEMOLYSIS < 15 (0-50); LDL Cholesterol Calculated 75 mg/dL (<100); Potassium 4.9 mmol/L (3.4-5.1); Sodium 140 mmol/L (137-145); Triglycerides 83 mg/dL (35-150)
== END ==
PROVIDERS: Family Provider Nutritionist; PCP Internal Medicine; Referring Provider Internal Medicine Cardiovascular Disease; Visit Provider Internal Medicine Cardiovascular Disease
DX: E78.5 Hyperlipidemia, unspecified (principal); I49.1 Atrial premature depolarization; I10 Essential (primary) hypertension; I34.0 Nonrheumatic mitral (valve) insufficiency
CPT/HCPCS: 36415; 80048; 80053; 80061; 85025; 93306

== ENCOUNTER → 2022-03-23 13:13 | Outpatient (CLI) | payer MEDICARE, OTHER, SELFPAY ==
[2020-05-14 13:55] VITALS: BMI 33.7
== END ==
PROVIDERS: Family Provider Student in an Organized Health Care Education/Training Program; PCP Student in an Organized Health Care Education/Training Program; Referring Provider Student in an Organized Health Care Education/Training Program; Visit Provider Family Medicine
DX: R22.42 Localized swelling, mass and lump, left lower limb (principal)
CPT/HCPCS: 99203; 99213

== ENCOUNTER → 2022-05-01 12:06 | Outpatient (CLI) | payer MEDICARE, OTHER, SELFPAY ==
[2020-05-14 13:55] VITALS: BMI 33.7
--- NOTE | 2022-05-01 | DI.MRI.S_ITS ---
PROCEDURE: MR ANKLE LT WO/W CON INDICATIONS: Mass of skin left ankle TECHNIQUE: Noncontrast sagittal T1 spin echo and T2 fast spin echo with fat saturation, axial proton density fast spin echo and T2 fast spin echo with fat saturation, axial T1 spin echo with fat saturation, coronal T1 spin echo and T2 fast spin echo with fat saturation through the ankle/hindfoot. Post-contrast axial, coronal, and sagittal T1 spin echo with fat saturation through the ankle/hindfoot. COMPARISON: None. FINDINGS: Image quality: Excellent. Bones and joints: There is prior Achilles tendon repair with postsurgical changes seen in posterior calcaneus. No suspicious osseous enhancement. No bone marrow contusions or fractures. No hindfoot coalitions. No osteochondral injuries of the talar dome. Prominent plantar calcaneal enthesophyte is seen. Gdti-ey-slzwfjla midfoot and hindfoot joint osteoarthritic changes are seen with joint space narrowing and subchondral sclerosis. Small amount of tibiotalar joint effusion is seen, no gross loose bodies. Medial structures: The posterior tibialis, flexor digitorum longus, and flexor hallucis longus tendons are intact. The posterior tibial neurovascular bundle appears normal within the tarsal tunnel, without extrinsic mass effect. The deep layer (anterior and posterior tibiotalar ligaments) and superficial layer (tibionavicular, tibiospring, and tibiocalcaneal ligaments) of the deltoid ligament appear normal. The spring ligament components (superomedial calcaneonavicular, medioplantar oblique calcaneonavicular, and inferoplantar longitudinal ligaments) are intact. Lateral structures: The anterior talofibular, calcaneofibular, and posterior talofibular ligaments appear intact. More superiorly, the anterior and posterior tibiofibular ligaments appear intact, as is the intermalleolar ligament. The tibiofibular syndesmosis is normal in width at 2 mm or less. The peroneus longus and brevis tendons demonstrate normal location and morphology. Adjacent bony peroneal tubercle and retrotrochlear prominence are normal in size. The sinus tarsi demonstrates normal fatty signal, without edema, fibrosis, or cyst formation. Visualized sinus tarsi components (cervical ligament, interosseous talocalcaneal ligament, roots of the inferior extensor retinaculum) appear normal. The calcaneonavicular and calcaneocuboid components of the bifurcate ligament appear intact. The dorsal calcaneocuboid ligament appears intact. Anterior structures: The tibialis anterior, extensor hallucis longus, and extensor digitorum longus tendons appear intact. The dorsal talonavicular ligament appears intact. Posterior and plantar structures: Markedly thickened distal 9 cm segment of Achilles tendon extending to its posterior calcaneal insertion is seen and measures up to 1.8 x 2.3 cm in largest AP and transverse diameters. No Achilles tendon rupture. Thickened medial band of plantar fascia at its calcaneal insertion is seen. No abductor digiti quinti muscle atrophy to suggest Graf neuropathy. IMPRESSION: 1. Prior Achilles tendon repair with postsurgical changes. Thickened distal 9 cm segment of Achilles tendon with very mild intrasubstance T2 hyperintense signal suggestive of tendinosis and low-grade intrasubstance partial-thickness tear. This corresponds to patient's reported area of palpable mass. No enhancing soft tissue mass is seen. No full-thickness Achilles tendon rupture. 2. Well-defined plantar calcaneal enthesophyte with thickened medial band of plantar fascia at its calcaneal insertion suggestive of low-grade plantar fasciitis. 3. No fracture or dislocation. [id number] midfoot and hindfoot joint osteoarthritis. Small joint effusion, no gross loose bodies. 4. Rest of the ankle tendons and ligaments are grossly intact. Dictated by: Ernesto Ojeda M.D. on 05/01/2022 at 15:00 Approved by: Ernesto Ojeda M.D. on 05/01/2022 at 15:06
== END ==
PROVIDERS: Family Provider Student in an Organized Health Care Education/Training Program; PCP Student in an Organized Health Care Education/Training Program; Referring Provider Podiatrist; Visit Provider Podiatrist
DX: R22.42 Localized swelling, mass and lump, left lower limb (principal); M76.892 Other specified enthesopathies of left lower limb, excluding foot; M19.072 Primary osteoarthritis, left ankle and foot; M25.472 Effusion, left ankle
CPT/HCPCS: 73723; A9579